=== PATIENT | male | born 1995 | race African-American/Black ===

== ENCOUNTER 2021-07-21 09:45 | Emergency (ER) | payer OTHER ==
[~2021-07-21] VITALS: Ht 172.7 cm; Wt 75.0 kg
[2021-07-21] MEDS ORDERED: TAM75CAP PO (11:33)
[2021-07-21] MEDS ORDERED: ZOFRAN4 M1 PO (11:35)
[2021-07-21 11:48] VITALS: BP 146/79
== END 2021-07-21 11:48 | disposition home or self-care (01) | DRG 153 ==
LOC: ED 09:45
DX: J11.1 Influenza due to unidentified influenza virus with other respiratory manifestations (principal); Z20.822 Contact with and (suspected) exposure to COVID-19

== ENCOUNTER 2023-08-16 09:28 | Emergency (ER) | payer OTHER ==
[~2023-08-16] VITALS: Ht 172.7 cm; Wt 78.0 kg
[2023-08-16] VITALS (10 sets, daily range): BP systolic 124–145; BP diastolic 74–92
[~2023-08-16 09:28] MED LIST: TAM75CAP PO; ZOFRAN4 M1 PO
[2023-08-16 10:15] LABS: BASO% 0.3 % (0-3); HEMOGLOBIN 15.1 g/dl (14.0-18.0); IMMATURE GRANULOCYTES 0.4 % (0.0-5.0); LYMPH% 17.7 % (15-41); MEAN CELL VOLUME 76.9 fL CALC (80.0-100.0); MEAN CORPUSCULAR HGB 25.8 pG CALC (26.0-32.0); MEAN CORPUSCULAR HGB CONC 33.6 g/dL CAL (32.0-36.0); MONO% 10.8 % (2-13); NEUT# 7.05 thou/uL (1.82-7.42); NEUT% 70.8 % (42-76); RED BLOOD COUNT 5.85 mill/uL (4.70-6.10); RED CELL DISTRI WIDTH 13.3 % (11.5-15.5)
[2023-08-16 10:20] LABS: ALBUMIN 4.5 g/dL (3.2-5.0); ALKALINE PHOSPHATASE 67 u/l (38-126); ANION GAP 13 (6-22 (CALC)); BILIRUBIN, TOTAL 1.2 mg/dL (0.2-1.3); BUN 14 mg/dL (9-20); BUN/CREATININE RATIO 12 (12-20 (CALC)); CARBON DIOXIDE 28 mmol/l (22-30); CHLORIDE 102 mmol/l (95-108); CREATININE 1.2 mg/dL (0.7-1.3); GFR FOR AFR.AMER. > 60 ML/MIN (>=60 (CALC)); GFR OTHER RACES > 60 ML/MIN (>=60 (CALC)); SGOT/AST 35 u/l (17-59); SODIUM 140 mmol/l (137-146); TOTAL PROTEIN 8.4 g/dL (6.3-8.2)
[2023-08-16] MEDS ORDERED: AMOX/K CLAV875 M1 PO (11:50)
== END 2023-08-16 12:13 | disposition home or self-care (01) | DRG 153 ==
LOC: ED 09:28
PROVIDERS: Family Medicine
DX: J36 Peritonsillar abscess (principal); Z20.822 Contact with and (suspected) exposure to COVID-19
CPT/HCPCS: Q9967